=== PATIENT | male | born 1950 | race Caucasian/White ===

== ENCOUNTER 2018-06-26 08:03 | Emergency (ER) | payer MEDICARE, BC ==
[2018-06-26] MEDS ORDERED: BUFFERED LIDOCAINE 10 ML SYRINGE SUBQ STA (08:49)
[2018-06-26] MEDS ORDERED: TETANUS/DIPHTHERIA/PERTUSSIS 0.5 ML SYRINGE IM ONE (10:25)
--- NOTE | 2018-06-26 10:26 | ED Physician Documentation ---
PD HPI UPPER EXT INJURY - Stated complaint Stated Complaint: LEFT HAND LAC - Chief complaint Chief Complaint: Ext Problem - History obtained from History obtained from: Patient - History of Present Illness Location: Left, Hand Type of injury: Laceration Where injury occurred: Home Timing - onset: Last night Timing - duration: Hours Timing - details: Abrupt onset, Still present Improved by: Rest, Immobilization Worsened by: Moving, Palpating Associated symptoms: No: Weakness, Numbness Contributing factors: No: Anticoagulated Similar symptoms before: Diagnosis (laceration) - Additonal information Additional information: 67-year-old male was using a pair of scissors and cut he is left hand in the webspace between the second and third digits. He tried to close this with some new skin last night and this failed. He is in here this morning wondering about suturing. Review of Systems Constitutional: denies: Fever Respiratory: denies: Cough GI: denies: Vomiting Skin: reports: Laceration (s). denies: Rash Musculoskeletal: denies: Neck pain, Back pain PD PAST MEDICAL HISTORY - Past Medical History Past Medical History: No - Past Surgical History Past Surgical History: No - Present Medications Home Medications: Ambulatory Orders Medication Instructions Recorded Confirmed No Known Home Medications 06/26/18 06/26/18 - Allergies Allergies/Adverse Reactions: Allergies Allergy/AdvReac Type Severity Reaction Status Date / Time No Known Drug Allergies Allergy Verified 06/26/18 08:25 - Social History Does the pt smoke?: No Smoking Status: Never smoker Does the pt have substance abuse?: No - Immunizations Immunizations are current?: No Immunizations: TDAP >10years/unknown - POLST Patient has POLST: No PD ED PE NORMAL - Vitals Vital signs reviewed: Yes (hypertensive ) - General General: Alert and oriented X 3, No acute distress, Well developed/nourished - HEENT HEENT: Atraumatic, PERRL, EOMI - Respiratory Respiratory: No respiratory distress - Derm Derm: Normal color, Warm and dry, No rash - Extremities Extremities: No deformity, No edema, Other (There is a 2cm laceration to the left hand in the web space between #2 and #3 distal n/v is intact. 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, No motor deficit, No sensory deficit, Normal speech Eye Opening: Spontaneous Motor: Obeys Commands Verbal: Oriented GCS Score: 15 - Psych Psych: Normal mood, Normal affect Results - Vitals Vitals: Vital Signs - 24 hr 06/26/18 08:22 Temperature 35.6 C L Heart Rate 56 L Respiratory 16 Rate Blood Pressure 136/89 H O2 Saturation 97 Oxygen O2 Source Room air Procedures - Laceration (location) left hand Length in cm: 2 Wound type: Linear, Clean Neurovascular status: Sensory intact, Motor intact, Vascular intact Anesthesia: Lidocaine 1%, With bicarb Wound Preparation: Hibiclens, Irrigated copiously NS, Wound explored, To the base Skin layer closure: Nylon, Interrupted, Size #-0 - enter number (4-0), Sutures - enter # (3) Other: Patient tolerated well, No complications, Neurovascular intact, Dressing applied, Tetanus booster given Complexity: Simple PD MEDICAL DECISION MAKING - ED course Complexity details: considered differential, d/w patient ED course: 67-year-old male with a laceration from a pair of scissors is sutured. - Sepsis Event Vital Signs: Vital Signs - 24 hr 06/26/18 08:22 Temperature 35.6 C L Heart Rate 56 L Respiratory 16 Rate Blood Pressure 136/89 H O2 Saturation 97 Oxygen O2 Source Room air Departure - Departure Disposition: 01 Home, Self Care Clinical Impression: Hand laceration Qualifiers: Encounter type: initial encounter Foreign body presence: without foreign body Laterality: left Qualified Code(s): S61.412A - Laceration without foreign body of left hand, initial encounter Condition: Stable Instructions: ED Laceration Hand Follow-Up: Mauro Dickerson MD [Primary Care Provider] - Comments: Sutures will need to be removed in 7-10 days.
[2018-06-26 10:40] VITALS: BP 128/95
== END 2018-06-26 10:40 | disposition home or self-care (01) ==
LOC: ED 08:03
DX: S61.412A Laceration without foreign body of left hand, initial encounter (principal); W27.2XXA Contact with scissors, initial encounter; Z23 Encounter for immunization
CPT/HCPCS: 12001; 90471; 99281; 99283

== ENCOUNTER 2021-10-04 08:00 | Outpatient (CLI) | payer MEDICARE, BC ==
--- NOTE | 2021-10-04 09:36 | XRAY Report ---
PROCEDURE: Ribs w/PA Chest RT INDICATIONS: CONTUSION OF RIGHT FRONT WALL OF THORAX TECHNIQUE: 3 views of the right ribs were acquired, along with a single view chest. COMPARISON: None FINDINGS: Surgical changes and devices: None. Bones and chest wall: Mildly displaced fracture of the right anterolateral ninth rib. No suspicious b michael lesions. Overlying soft tissues appear unremarkable. Lungs and pleura: No pleural effusions or pneumothorax. Lungs appear clear. Mediastinum: Mediastinal contours appear normal. Heart size is normal. IMPRESSION: Mildly displaced right anterolateral ninth rib fracture. Reviewed by: Judith José MD on 10/04/2021 9:35 AM PST Approved by: Judith José MD on 10/04/2021 9:35 AM PST Station ID: [id number]
== END 2021-10-04 23:59 | disposition home or self-care (01) ==
LOC: DI.S 08:00
PROVIDERS: ATTEND Physician Assistant Medical
DX: S22.31XA Fracture of one rib, right side, initial encounter for closed fracture (principal)

== ENCOUNTER 2023-10-14 07:31 | Outpatient (CLI) | payer MEDICARE, BC ==
[2023-10-14 15:05] LABS: BASOPHILS % (AUTO) 0.9 %; EOSINOPHILS # (AUTO) 0.1 10^3/uL (0.0-0.7); EOSINOPHILS % (AUTO) 2.6 %; HCT - HEMATOCRIT 47.8 % (42.0-52.0); HGB - HEMOGLOBIN 15.7 g/dL (14.0-18.0); LYMPHOCYTES # (AUTO) 1.4 10^3/uL (1.5-3.5); LYMPHOCYTES % (AUTO) 31.6 %; MEAN CORPUSCULAR HEMOGLOBIN 29.5 pg (27.0-31.0); MEAN CORPUSCULAR HGB CONC 32.8 g/dL (32.0-36.0); MEAN CORPUSCULAR VOLUME 89.7 fL (80.0-94.0); MEAN PLATELET VOLUME 9.4 fL (7.4-11.4); MONOCYTES # (AUTO) 0.7 10^3/uL (0.0-1.0); MONOCYTES % (AUTO) 14.5 %; NEUTROPHILS # (AUTO) 2.3 10^3/uL (1.5-6.6); NEUTROPHILS % (AUTO) 50.2 %; PLT - PLATELET COUNT 216 10^3/uL (130-450); RED BLOOD COUNT 5.33 10^6/uL (4.70-6.10); RED CELL DISTRIBUTION WIDTH 14.6 % (12.0-15.0); WHITE BLOOD COUNT 4.6 x10^3/uL (4.8-10.8)
[2023-10-14 17:21] LABS: ALBUMIN 4.1 g/dL (3.2-5.5); ALBUMIN/GLOBULIN RATIO 1.9 (1.0-2.2); ALKALINE PHOSPHATASE 70 IU/L (42-121); ALT ALANINE AMINOTRANSFERASE 27 IU/L (10-60); AST ASPARTATE AMINOTRANSFERASE 26 IU/L (10-42); BILIRUBIN,TOTAL 1.2 mg/dL (0.2-1.0); BUN - BLOOD UREA NITROGEN 17 mg/dL (6-20); CALCIUM 8.9 mg/dL (8.5-10.3); CARBON DIOXIDE - CO2 30 mmol/L (21-32); CHLORIDE 104 mmol/L (101-111); CHOL/HDL RATIO 4.4 (<5.0); CHOLESTEROL 176 mg/dL; GFR - MDRD 73 (>89); GLUCOSE 124 mg/dL (74-104); HDL CHOLESTEROL 40 mg/dL; LDL CHOLESTEROL,CALCULATED 105 mg/dL; LDL/HDL RATIO 2.6 (<3.6); POTASSIUM 4.3 mmol/L (3.5-4.5); SODIUM 138 mmol/L (135-145); TOTAL PROTEIN 6.3 g/dL (6.4-8.9); TRIGLYCERIDES 156 mg/dL (48-352); VLDL CHOLESTEROL 31 mg/dL
[2023-10-14 17:24] LABS: THYROID STIMULATING HORMONE 9.05 uIU/mL (0.34-5.60)
[2023-10-14 17:27] LABS: FERRITIN 364.8 ng/mL (23.9-336.2)
[2023-10-14 21:48] LABS: ESTIMATED AVERAGE GLUCOSE 97 mg/dL (70-100)
== END 2023-10-14 07:32 | disposition home or self-care (01) ==
LOC: LAB.S 07:31
PROVIDERS: ATTEND Internal Medicine
DX: I10 Essential (primary) hypertension (principal); G47.9 Sleep disorder, unspecified; Z13.220 Encounter for screening for lipoid disorders
CPT/HCPCS: 36415; 80053; 80061; 82728; 83036; 83721; 84439; 84443; 85025

== ENCOUNTER 2023-10-21 07:03 | Outpatient (CLI) | payer MEDICARE, BC ==
[2023-10-21 14:11] LABS: BASOPHILS # (AUTO) 0.1 10^3/uL (0.0-0.1); BASOPHILS % (AUTO) 0.5 %; EOSINOPHILS # (AUTO) 0.2 10^3/uL (0.0-0.7); EOSINOPHILS % (AUTO) 2.4 %; HCT - HEMATOCRIT 50.3 % (42.0-52.0); HGB - HEMOGLOBIN 16.4 g/dL (14.0-18.0); LYMPHOCYTES # (AUTO) 1.5 10^3/uL (1.5-3.5); LYMPHOCYTES % (AUTO) 15.3 %; MEAN CORPUSCULAR HEMOGLOBIN 29.5 pg (27.0-31.0); MEAN CORPUSCULAR HGB CONC 32.6 g/dL (32.0-36.0); MEAN CORPUSCULAR VOLUME 90.6 fL (80.0-94.0); MEAN PLATELET VOLUME 9.1 fL (7.4-11.4); MONOCYTES # (AUTO) 0.9 10^3/uL (0.0-1.0); MONOCYTES % (AUTO) 9.5 %; NEUTROPHILS # (AUTO) 6.9 10^3/uL (1.5-6.6); NEUTROPHILS % (AUTO) 71.8 %; PLT - PLATELET COUNT 345 10^3/uL (130-450); RED BLOOD COUNT 5.55 10^6/uL (4.70-6.10); RED CELL DISTRIBUTION WIDTH 14.4 % (12.0-15.0); WHITE BLOOD COUNT 9.6 x10^3/uL (4.8-10.8)
== END 2023-10-21 07:04 | disposition home or self-care (01) ==
LOC: LAB.S 07:03
PROVIDERS: ATTEND Internal Medicine
DX: R79.89 Other specified abnormal findings of blood chemistry (principal)
CPT/HCPCS: 36415; 82728; 83540; 84466; 85025

== ENCOUNTER 2023-11-04 07:06 | Outpatient (CLI) | payer MEDICARE, BC | END 2023-11-04 07:07 | disposition home or self-care (01) | LOC: LAB.S 07:06 | PROVIDERS: ATTEND Internal Medicine | DX: E03.9 Hypothyroidism, unspecified (principal) | CPT/HCPCS: 36415; 84443 ==

== ENCOUNTER 2023-11-25 12:37 | Outpatient (CLI) | payer MEDICARE, BC ==
--- NOTE | 2023-11-27 13:36 | SLEEP CARE CONSULTATION ---
Information from patient questionnaire entered by Ino Ricci. I have reviewed and concur with the information entered by Ino Ricci. This document represents the service I personally performed and the decisions made by me, Kasia Sheikh MD, [facility]. History of Present Illness Service Date and Time: 11/25/2023 1237 Reason for Visit: New patient Date of Onset: 50YRS Usual bedtime: 830-9PM Time it takes to fall asleep: VARRIES Snores at night: No Observed to quit breathing while asleep: No Sleeps alone due to snoring: No Number of times waking at night: 2-3 Reasons for waking at night: reports: Other (HOT) Toss, Turn, or Twitch while sleeping: Yes Recalls having dreams: No Usually gets out of bed at: 2745-0433 Feels refreshed in the morning: Yes Morning headache: No Sleepy or fatigued during the day: No Ever fallen asleep while driving: No Takes day naps: No Dreams during day naps: No Prior sleep studies: No Additional HPI information: I had the pleasure of seeing Mr. Dahl and his today regarding the possibility of him having a sleep disorder. As you know, he is a 73-year-old gentleman who complains of insomnia for about 10 years. He says that throughout his life, he does not sleep muchaveraging 4 6 hours a night. He used to wake up early around 3 -4 a.m. to work or play golf. The patient tells me that he normally goes to bed around 8:30 - 9 pm, and it takes him approximately 30 minutes to fall asleep. He goes to bed early because his snores loudly and he tries to fall asleep before her. He does not snore. He has never been observed to stop breathing in his sleep. His sleeps in the same bed but he occasionally moves out during the night to get away from his wifes snoring. He can recall waking up on the average of 2 - 3 times during the night. There is a lot of tossing and turning in his sleep. No somniloquy (sleep talking) or somnambulism (sleep walking). Generally, there is no recollection of dreams. In the morning he usually gets up out of the bed around 5:30 6:30 a.m. not feeling refreshed nor rested. He usually does not have a morning headache. During the day he does not feel sleepy or fatigued. His score on [place] Sleepiness Scale is 3 out of 24. He has never fallen asleep while driving nor has had any accident due to sleepiness. He usually does not take naps during the day. He denies having impaired concentration during the day. - Parasomnia Symptoms Ever been unable to move upon waking from sleep: No Walks in sleep: No Talks in sleep: No Ever acted out dreams in sleep: No Ever felt weak in the knees when startled or emotional: No Bothered by creepy, crawly, restless sensations in legs: No Problems with memory or concentration: No Subjective Initial [place] Sleepiness Scale score: 4 (11/25/23) Social History The patient's occupation is a RE. Patient is and lives in [place]. Have you smoked in the past 12 months: No Cigarettes per day (20/pack): 10 Years of smokin Quit date: 1973 Smoking Pack Years: 5.0 Alcohol use: Yes Alcohol amount and frequency: 1 DRINK EVERY 4 MONTHS Caffeine use: Yes Caffeine amount and frequency: 1 DAILY Allergies and Home Medications Allergy and home medication list: Allergies No Known Drug Allergies Allergy (Verified 11/21/23 16:15) Review of Systems Cardiovascular: reports: high blood pressure Respiratory: denies: shortness of breath, wheeze, sputum production, chronic cough, other Gastrointestinal: denies: heartburn, difficulty swallowing, nausea, vomitting, diarrhea, abdominal pain, other Urinary: denies: incontinence, frequency, urgency, impotence, other Neurological: denies: headaches, seizure, head trauma, disorientation, speech dysfunction, gait or balance problems, fainting or unconsciousness, other Psychiatric: denies: Attention Deficit Hyperactivity, anxiety, depression, mood disorder, claustrophobia, other Ear/Nose/Throat: denies: nasal congestion, sinus problems, nose bleeds, dry mouth/throat, hoarseness, injury to nose, tonsillectomy, wisdom teeth removed, other Endocrine: reports: thyroid disease Musculoskeletal: reports: muscle pain or cramping Immunologic: denies: sneezing, rash, itching, allergies to food or environment, other Physical Exam Vital signs obtained and entered by: INO Stiles MA Blood Pressure: 135/79 (LEFT ARM) Cuff size: regular Heart Rate: 69 O2 Saturation: 96 Height: 5 ft 9.25 in Weight: 220 lb 9.6 oz Body Mass Index: 32.3 BMI Classification: Obese Neck circumference: 17 Mood/affect: Normal HEENT: No craniofacial malformation Nostrils: patent to airflow Turbinates: normal Septum: midline Mouth and throat: narrow oropharynx Soft palate: long Hard palate: normal Uvula: normal Uvula visualization: 50% Mallampati Class II Tongue: normal in size Tonsils: small Chin and jaw: normal size and position Neck: normal w/o lymphadenopathy or thyromegaly Heart: irregular rhythm (trigeminy) Lungs: clear bilaterally Extremities: no edema or clubbing Neurologic: intact Impression and Plan IMPRESSION: 1. Insomnia, due to excessive time spent in bed relative to his sleep requirement. Because he no longer has to work or plays golf in the morning, the patients wakeup time has slipped from 3 am to 5 am and he now ends up spending 9 hours in bedfrom 8pm to 5 am. His bedtime is early because he has to fall asleep before his due to her loud snore and untreated obstructive sleep apnea-hypopnea. Therefore, it is only appropriate that he is awake 2 3 hours during the night. The patient was advised to spend no more than 6 hours in bed each night. He may simply resume his old routine to waking at 3 am. I recommend an in-laboratory polysomnography because his obstructive sleep apnea- hypopnea risksobesity, narrow upper airway, age, and hypertension. The patient, however, declined. He said he will try to lose weight. Plan: 1. Maintain a regular wake up time and spend no more than 7 hours in bed at night. Avoid naps. 2. Return for a follow-up on as needed basis. Counseling Topics: Weight control Follow up with Sleep Care in: as needed Follow up recommended for: Weight management Visit Type: Telehealth Video Other Participants: Spouse/Significant Other Time Spent with Patient (minutes): 15 Provider Statement: I spent 100% of the Telehealth Video Call with the patient with greater than 50% spent counseling the patient and coordination of care.
[2023-11-27 13:43] VITALS: BP 135/79; O2SAT 96
== END 2023-11-25 12:38 | disposition home or self-care (01) ==
LOC: SC 12:37
PROVIDERS: ATTEND Internal Medicine Pulmonary Disease
DX: G47.00 Insomnia, unspecified (principal); E66.9 Obesity, unspecified; Z68.32 Body mass index [BMI] 32.0-32.9, adult; I10 Essential (primary) hypertension
CPT/HCPCS: 99202; G0463; 99212

== ENCOUNTER 2023-12-09 07:04 | Outpatient (CLI) | payer MEDICARE, BC ==
[2023-12-09 15:49] LABS: FERRITIN 249.5 ng/mL (23.9-336.2)
[2023-12-09 15:57] LABS: THYROID STIMULATING HORMONE 6.61 uIU/mL (0.34-5.60)
== END 2023-12-09 07:05 | disposition home or self-care (01) ==
LOC: LAB.S 07:04
PROVIDERS: ATTEND Internal Medicine
DX: R78.89 Finding of other specified substances, not normally found in blood (principal); E03.9 Hypothyroidism, unspecified
CPT/HCPCS: 36415; 82728; 83540; 84439; 84443; 84466

== ENCOUNTER 2024-04-06 07:37 | Outpatient (CLI) | payer MEDICARE, BC ==
[2024-04-06 14:57] LABS: BASOPHILS # (AUTO) 0.1 10^3/uL (0.0-0.1); BASOPHILS % (AUTO) 1.2 %; EOSINOPHILS # (AUTO) 0.4 10^3/uL (0.0-0.7); EOSINOPHILS % (AUTO) 5.5 %; HCT - HEMATOCRIT 49.2 % (42.0-52.0); HGB - HEMOGLOBIN 15.9 g/dL (14.0-18.0); LYMPHOCYTES # (AUTO) 1.5 10^3/uL (1.5-3.5); LYMPHOCYTES % (AUTO) 22.7 %; MEAN CORPUSCULAR HEMOGLOBIN 29.9 pg (27.0-31.0); MEAN CORPUSCULAR HGB CONC 32.3 g/dL (32.0-36.0); MEAN CORPUSCULAR VOLUME 92.7 fL (80.0-94.0); MEAN PLATELET VOLUME 10.1 fL (7.4-11.4); MONOCYTES # (AUTO) 0.5 10^3/uL (0.0-1.0); MONOCYTES % (AUTO) 7.3 %; NEUTROPHILS # (AUTO) 4.1 10^3/uL (1.5-6.6); PLT - PLATELET COUNT 241 10^3/uL (130-450); RED BLOOD COUNT 5.31 10^6/uL (4.70-6.10); RED CELL DISTRIBUTION WIDTH 13.9 % (12.0-15.0); WHITE BLOOD COUNT 6.6 x10^3/uL (4.8-10.8)
[2024-04-06 15:47] LABS: ALBUMIN 4.2 g/dL (3.2-5.5); ALBUMIN/GLOBULIN RATIO 1.8 (1.0-2.2); BILIRUBIN,TOTAL 0.9 mg/dL (0.2-1.0); CALCIUM 9.4 mg/dL (8.5-10.3); POTASSIUM 4.2 mmol/L (3.5-4.5); TOTAL PROTEIN 6.5 g/dL (6.4-8.9)
[2024-04-06 16:02] LABS: THYROID STIMULATING HORMONE 4.24 uIU/mL (0.34-5.60)
[2024-04-06 16:03] LABS: FERRITIN 132.5 ng/mL (23.9-336.2)
== END 2024-04-06 07:38 | disposition home or self-care (01) ==
LOC: LAB.S 07:37
PROVIDERS: ATTEND Internal Medicine
DX: I10 Essential (primary) hypertension (principal); R78.89 Finding of other specified substances, not normally found in blood; E03.9 Hypothyroidism, unspecified
CPT/HCPCS: 36415; 80053; 82728; 83540; 84439; 84443; 84466; 84481; 85025